=== PATIENT | female | born 1945 ===

== ENCOUNTER 2016-12-04 08:59 | Emergency (ER) | payer MEDICARE, BC ==
[2016-12-04 09:07] VITALS: TEMP 98.3
--- NOTE | 2016-12-04 10:36 | RAD ---
HISTORY: cough COMPARISON: No prior. TECHNIQUE: Chest PA and lateral FINDINGS: LUNGS: No active pulmonary disease. PLEURA: No significant pleural effusion identified. No pneumothorax apparent. CARDIOVASCULAR: No radiographic findings to suggest acute or significant cardiovascular disease. OSSEOUS STRUCTURES: No significant abnormalities. VISUALIZED UPPER ABDOMEN: Normal. OTHER FINDINGS: None. IMPRESSION: No active disease.
[2016-12-04 10:37] LABS: BASO % 0.7 % (0.0-2.0); EOS # 0.3 K/uL (0.0-0.7); EOS % 4.5 % (0.0-4.0); HEMATOCRIT 43.5 % (34.0-47.0); LYMPH # 1.4 K/uL (1.0-4.3); LYMPH % 24.5 % (20.0-40.0); MEAN CELL VOLUME 91.3 fL (81.0-99.0); MEAN PLATELET VOLUME 8.8 fL (7.2-11.7); MONO # 0.4 K/uL (0.0-0.8); NRBC % 0.1 % (0.0-2.0); RED CELL DISTRIBUTION WIDTH 12.8 % (11.5-14.5); WHITE BLOOD COUNT 5.8 K/uL (4.8-10.8)
--- NOTE | 2016-12-04 10:44 | C.PDOC ---
History Of Present Illness 71-year-old female, presents to the emergency department with complaints of sore throat, non-productive cough, nausea and subjective fevers for the past week. Patient denies chest pain or shortness of breath. No other complaints at this time. Time Seen by Provider: 12/04/16 10:02 Chief Complaint (Nursing): Cough, Cold, Congestion History Per: Patient History/Exam Limitations: no limitations Onset/Duration Of Symptoms: Days Current Symptoms Are (Timing): Still Present Severity: Moderate Past Medical History Reviewed: Historical Data, Nursing Documentation, Vital Signs Vital Signs: Last Vital Signs Temp 98.3 F 12/04/16 11:39 Pulse 57 L 12/04/16 11:39 Resp 20 12/04/16 11:39 BP 159/72 H 12/04/16 11:39 Pulse Ox 98 12/04/16 11:39 Family History: States: No Known Family Hx - Social History Hx Alcohol Use: No Hx Substance Use: No Review Of Systems Except As Marked, All Systems Reviewed And Found Negative. Constitutional: Negative for: Fever Cardiovascular: Negative for: Chest Pain Respiratory: Negative for: Shortness of Breath Gastrointestinal: Negative for: Vomiting Neurological: Negative for: Weakness, Numbness Physical Exam - Physical Exam Appears: Non-toxic, No Acute Distress Skin: Warm, Dry, No Rash Head: Atraumatic Eye(s): bilateral: Normal Inspection Nose: Normal Oral Mucosa: Moist Lips: Normal Appearing Neck: Normal ROM Cardiovascular: Rhythm Regular Respiratory: Normal Breath Sounds, No Accessory Muscle Use Extremity: Normal ROM ED Course And Treatment - Laboratory Results Result Diagrams: 12/04/16 10:33 12/04/16 10:33 O2 Sat by Pulse Oximetry: 100 Disposition - Disposition Referrals: [facility] [Outside] [facility] [Outside] [facility] [Outside] Disposition: HOME/ ROUTINE Disposition Time: 11:18 Condition: STABLE Additional Instructions: please follow up with your doctor/clinic return to er with worsening symptoms or concerns. Prescriptions: Azithromycin [Zithromax] 250 mg PO DAILY #6 tab Instructions: Upper Respiratory Infection (ED) - Clinical Impression Clinical Impression: Upper respiratory infection - Scribe Statement The provider has reviewed the documentation as recorded by the Scribharis Healy All medical record entries made by the Scribe were at my direction and personally dictated by me. I have reviewed the chart and agree that the record accurately reflects my personal performance of the history, physical exam, medical decision making, and the department course for this patient. I have also personally directed, reviewed, and agree with the discharge instructions and disposition.
[2016-12-04 10:45] LABS: CHLORIDE 102 mmol/L (98-107)
[2016-12-04 10:46] LABS: SODIUM 141 mmol/L (132-148)
[2016-12-04 10:48] LABS: ALKALINE PHOSPHATASE 69 U/L (38-126); AST/SGOT 54 U/L (14-36); BILIRUBIN,TOTAL 1.5 mg/dL (0.2-1.3); BLOOD UREA NITROGEN 12 mg/dL (7-17); CARBON DIOXIDE 25 mmol/L (22-30); GFR AFRICAN-AMERICAN > 60; POTASSIUM 5.3 mmol/L (3.6-5.2); TOTAL PROTEIN 9.6 g/dL (6.3-8.3)
[2016-12-04 10:49] LABS: ALT/SGPT 16 U/L (9-52); CALCIUM 9.5 mg/dl (8.6-10.4); GLUCOSE,RANDOM 94 mg/dL (65-105)
[2016-12-04 11:40] VITALS: BP 159/72; PULSE 57; RESP 20
[2016-12-04 13:52] VITALS: O2SAT 100
== END 2016-12-04 11:39 | disposition home or self-care (01) ==
LOC: MERGE 08:59 → C.ER 08:59
DX: J06.9 Acute upper respiratory infection, unspecified (principal)

== ENCOUNTER 2018-07-13 10:59 | Emergency (ER) | payer BC, MEDICARE ==
[2018-07-13 11:08] VITALS: BMI 23.6
[2018-07-13 11:09] VITALS: RESP 18
--- NOTE | 2018-07-13 11:24 | C.PDOC ---
History Of Present Illness 72 y/o female with a family history of cardiac disease (mom at age 38 due to VT), presents to the ED with chest pain that began 2 days ago after a big meal. Chest pain is described as mid-sternal, and improves with burping. She denies any SOB, nausea, vomiting, abdominal pain, dizziness, blurred/double vision, or leg swelling. No prior history of blood clots. Patient notes she has had similar pain in the past, and was diagnosed with GERD. She had a negative echo and stress test [address] Stuart (her central scheduler). Patient has not taken any medication for pain. At present, she denies having chest pain. Time Seen by Provider: 07/13/18 11:22 Chief Complaint (Nursing): Chest Pain History Per: Patient History/Exam Limitations: no limitations Onset/Duration Of Symptoms: Days (x 2) Current Symptoms Are (Timing): Gone Alleviating Factors: Other (Belching) Past Medical History Reviewed: Historical Data, Nursing Documentation, Vital Signs Vital Signs: Last Vital Signs Temp 97.9 F 07/13/18 11:08 Pulse 64 07/13/18 11:08 Resp 18 07/13/18 11:08 BP 143/75 07/13/18 11:08 Pulse Ox 100 07/13/18 11:08 - Medical History PMH: No Chronic Diseases Surgical History: No Surg Hx Family History: States: [place] - Social History Hx Alcohol Use: No Hx Substance Use: No Review Of Systems Constitutional: Negative for: Fever, Chills, Sweats Eyes: Negative for: Vision Change ENT: Negative for: Ear Discharge Cardiovascular: Negative for: Palpitations, Orthopnea Respiratory: Negative for: Cough, Shortness of Breath, SOB with Excertion Gastrointestinal: Negative for: Nausea, Vomiting, Abdominal Pain, Diarrhea, Cons tipation, Melena, Hematochezia Genitourinary: Negative for: Dysuria, Frequency, Hematuria, Vaginal Discharge, Vaginal Bleeding Musculoskeletal: Negative for: Neck Pain, Shoulder Pain, Back Pain Neurological: Negative for: Weakness, Numbness, Headache, Dizziness Physical Exam - Physical Exam Appears: Non-toxic, No Acute Distress Skin: Warm, Dry Head: Normacephalic Eye(s): bilateral: Normal Inspection, PERRL, EOMI Nose: Normal Oral Mucosa: Moist Tongue: Normal Appearing Lips: Normal Appearing Teeth: Normal Dentition Throat: Normal, No Erythema, No Exudate Neck: Normal ROM, Other (no meningeal signs) Chest: Symmetrical, No Deformity, No Tenderness Cardiovascular: Rhythm Regular, No Friction Rub Respiratory: Normal Breath Sounds, No Rales, No Rhonchi, No Wheezing Gastrointestinal/Abdominal: Soft, No Tenderness, No Distention Back: Normal Inspection, No CVA Tenderness Extremity: Normal ROM Extremity: Bilateral: Atraumatic, Normal Color And Temperature Pulses: Left Dorsalis Pedis: Normal, Right Dorsalis Pedis: Normal Neurological/Psych: Oriented x3, Normal Speech, Normal Cognition Extremity: Right: No Drift, Left: No Drift ED Course And Treatment - Laboratory Results Result Diagrams: 07/13/18 11:47 07/13/18 11:47 O2 Sat by Pulse Oximetry: 100 (RA) Pulse Ox Interpretation: Normal Medical Decision Making Medical Decision Makin72 y/o female with a family history of cardiac disease (mom at 38 due to VT), p/w chest pain onset 2 days ago following a big meal. No chest pain at p resent. No hx of HTN, HLD, DM2 No associated SOB, CASTRO, nausea, vomiting, abdominal pain, or other complaints. Reports negative echo and stress test 5 months ago. Had similar pain in the past, diagnosed with GERD. Plan: --EKG --Blood work w/ cardiac enzymes --Chest x-ray --30 ml PO Maalox --20 mg IV Pepcid --Reeval and dispo Heart score Story: 0 Age: 1 RF: 1 EK troponin: 0 HEART SCORE 3, low risk 1326 pt notes improvement of pain, now fully resolved given pain improvement, low risk chest pain on heart core as well as recent negative stress and echo, w/ likely dx of GERD will d/c home w/ f/u and return indications. Pt agreeable to plan. Disposition - Disposition Disposition Time: 13:29 Condition: GOOD Forms: [facility] (Danish) - Clinical Impression Clinical Impression: Chest pain, GERD (gastroesophageal reflux disease) - Scribe Statement The provider has reviewed the documentation as recorded by the Veronika Moreno Provider Attestation: All medical record entries made by the Scribe were at my direction and personally dictated by me. I have reviewed the chart and agree that the record accurately reflects my personal performance of the history, physical exam, medical decision making, and the department course for this patient. I have also personally directed, reviewed, and agree with the discharge instructions and disposition.
[2018-07-13] MEDS ORDERED: Alum-Mag Hydrox-Simethicone Susp (30 mL) PO STA (11:50)
[2018-07-13 11:53] LABS: BASO % 0.8 % (0.0-2.0); EOS # 0.2 K/uL (0.0-0.7); EOS % 3.7 % (0.0-4.0); HEMOGLOBIN 13.5 g/dL (11.0-16.0); LYMPH # 1.5 K/uL (1.0-4.3); LYMPH % 32.6 % (20.0-40.0); MEAN CELL VOLUME 92.4 fL (81.0-99.0); MEAN CORPUSCULAR HGB CONC 34.6 g/dL (33.0-37.0); MONO # 0.2 K/uL (0.0-0.8); MONO % 5.1 % (0.0-10.0); NEUT # 2.6 K/uL (1.8-7.0); NEUT % 57.8 % (50.0-75.0); RBC 4.23 Mil/uL (3.80-5.20); RED CELL DISTRIBUTION WIDTH 12.9 % (11.5-14.5); WHITE BLOOD COUNT 4.5 K/uL (4.8-10.8)
[2018-07-13] MEDS ORDERED: Alum-Mag Hydrox-Simethicone Susp (30 mL) ONE (11:58)
[2018-07-13 12:13] LABS: ALB/GLOB RATIO 1.2 (1.0-2.1); ALBUMIN 4.5 g/dL (3.5-5.0); ALT/SGPT 27 U/L (9-52); AST/SGOT 31 U/L (14-36); BLOOD UREA NITROGEN 17 mg/dL (7-17); GFR NON-AFRICAN AMERICAN 54
[2018-07-13 12:23] LABS: B-TYPE NATRIURETIC PEPTIDE 162 pg/mL (0-900); CK-MB 1.17 ng/mL (0.0-3.38)
--- NOTE | 2018-07-13 13:16 | RAD ---
Date of service: 07/13/2018 PROCEDURE: CHEST RADIOGRAPH, 1 VIEW HISTORY: SOB COMPARISON: None available. FINDINGS: LUNGS: The lungs are well inflated and clear. PLEURA: No pneumothorax or pleural effusion. CARDIOVASCULAR: The heart is normal in size. No aortic atherosclerotic calcifications present. OSSEOUS STRUCTURES: Within normal limits for the patient's age. VISUALIZED UPPER ABDOMEN: Normal. OTHER FINDINGS: None. IMPRESSION: No active pulmonary disease.
[2018-07-13 13:41] VITALS: BP 132/72; PULSE 49; TEMP 97.8; O2SAT 97
--- NOTE | 2018-07-16 13:41 | CARD ---
APPROVED REPORT Date of service: 07/13/2018 EKG Measurement Heart [id number] CT 130P33 [id number] <Conclusion> Normal sinus rhythm Normal ECG
== END 2018-07-13 13:50 | disposition home or self-care (01) ==
LOC: C.ER 10:59
DX: K21.9 Gastro-esophageal reflux disease without esophagitis (principal); R07.9 Chest pain, unspecified